=== PATIENT | female | born 1940 | race Caucasian/White ===

== ENCOUNTER 2017-02-15 16:47 | Inpatient (IN) | payer MEDICARE, OTHER ==
[2017-02-15] MEDS ORDERED: SODIUM CHLORIDE 0.9% 500 ML ONE (17:35)
[2017-02-15 18:08] LABS: ABSOLUTE NEUTROPHIL COUNT 5.3 K/mm3 (1.8-7.7); BASO # 0.1 K/mm3 (0.0-0.2); BASO % 0.7 % (0.2-1.0); EOS # 0.2 (0.0-0.5); EOS % 2.2 % (0.9-2.9); HEMATOCRIT 38.8 % (37.0-47.0); HEMOGLOBIN 12.5 gm/l (12.0-16.0); IMM NEUT% 0.3 % (0-1); LYMPH # 3.1 (1.0-4.8); LYMPH % 32.9 % (15-45); MEAN CELL VOLUME 96.3 fl (81.0-99.0); MEAN CORPUSCULAR HGB CONC 32.2 g/dl (33.0-37.0); MEAN PLATELET VOLUME 10.6 fl (7.4-10.4); MONO # 0.7 (0.0-0.8); MONO % 7.4 % (4-12); NEUT % 56.5 % (43-75); PLATELET COUNT 204 K/mm3 (130-400); RED CELL DISTRIBUTION WIDTH 13.4 % (11.5-14.5)
[2017-02-15 18:13] LABS: ALB/GLOB RATIO 1.1 (>1.0); ALBUMIN 3.8 gm/dL (3.5-5.7); CALCIUM 11.3 mg/dL (8.6-10.3)
[2017-02-15 18:17] LABS: INR 1.6; PARTIAL THROMBOPLASTIN TIME 30.4 SECONDS (24.5-33.0); PROTHROMBIN TIME 17.2 SECONDS (9.3-11.4)
--- NOTE | 2017-02-15 18:19 | CT ---
HEAD W/O CON: 02/15/2017 5:14 PM CLINICAL HISTORY: Left-sided weakness. CVA symptoms.. COMPARISON: 09/23/2012 TECHNIQUE: Contiguous axial 5 mm images from skull base to the vertex were obtained without IV contrast. Sagittal and coronal reformations with bone algorithm images were also obtained at this time. CT DI:: 51.7 DLP: 990.6 FINDINGS: Infarct: None Extra axial spaces: Normal in size and morphology for the patient's age. Hemorrhage: None. Ventricular system: Normal in size and morphology for the patient's age. Basal cisterns: Normal. Cerebral parenchyma: Encephalomalacia from prior left parietal infarction is again noted. Moderate atrophy. Compensatory dilation of the cerebral ventricles.. Midline shift: None. Cerebellum: Normal. Brainstem: Normal. OTHER: Calvarium: Normal. Vascular system: Normal. Visualized Paranasal sinuses and Mastoid air cells: Opacification of a right ethmoid air cell. The remainder are well aerated. There is some soft tissue gas noted within the right temporalis region of unknown clinical significance. There is been significant improvement in the pterygoid gas is noted on prior study though a few flecks are still present.. Visualized Orbits and regional soft tissues: Normal. IMPRESSION: Atrophy and findings from prior infarction. No acute intracranial process. Soft tissue gas has improved though still present within the temporalis and pterygoid musculature on the right. Findings were called to Dr. Brandon at approximately 1813 hours on 02/14/2017.
[2017-02-15 18:40] LABS: PH,URINE 6.5 (5.0-8.0); URINE APPEARANCE CLEAR; URINE BILIRUBIN NEGATIVE (NEGATIVE); URINE BLOOD TRACE (NEGATIVE); URINE COLOR YELLOW; URINE GLUCOSE (UA) TRACE (NEGATIVE); URINE LEUKOCYTE ESTERASE NEGATIVE (NEGATIVE); URINE NITRITE NEGATIVE (NEGATIVE); URINE PROTEIN 1+ (NEGATIVE); URINE UROBILINOGEN NORMAL (0-1 mg/dl)
[2017-02-15 18:51] LABS: URINE BACTERIA FEW; URINE EPITHELIAL CELLS 0-1 /hpf; URINE RBC 0-1 /hpf; URINE WBC 0-1 /hpf
--- NOTE | 2017-02-15 19:57 | RAD ---
02/15/2017 7:53 PM CHEST - 2 VIEWS History: Left-sided weakness. Comparison: 06/05/2016 Findings: Two views of the chest are obtained. The lungs again demonstrate some minimal blunting of the costophrenic angle bilaterally. This is improved on the left in comparison to prior study. Lungs are otherwise clear. Surgical clips are noted within the axilla bilaterally. The cardiomediastinal silhouette is unremarkable.. The osseous structures demonstrate degenerative changes of the shoulders bilaterally.. IMPRESSION: Tiny bilateral effusions, improved on the left in comparison to prior study. Lungs are otherwise clear. Follow-up as clinically warranted.
[2017-02-15] MEDS ORDERED: SODIUM CHLORIDE 0.9% 100 ML IV PRN (22:03)
[2017-02-15] MEDS ORDERED: BISACODYL 5 MG TABLET.EC PO PRN (22:03)
[2017-02-15] MEDS ORDERED: MAGNESIUM HYDROXIDE 30 ML UDCUP PO PRN (22:03)
[2017-02-15] MEDS ORDERED: BLISTEX LIPSTICK 1 EACH TP PRN (22:03)
[2017-02-15] MEDS ORDERED: MENTHOL/CETYLPYRD 1 EACH LOZENGE PO PRN (22:03)
[2017-02-15] MEDS ORDERED: BISACODYL 10 MG SUP PR PRN (22:03)
[2017-02-15] MEDS ORDERED: D5 1/2NS with 20 mEq KCL 1,000 ML IV SCH (22:15)
[2017-02-15] MEDS ORDERED: ZINC OXIDE OINT 60 APPLIC/60 G TUBE TP PRN (22:28)
[2017-02-15] MEDS ORDERED: ASPIRIN (UNCOATED) 325 MG TABLET PO ONE (22:34)
[2017-02-15] MEDS ORDERED: GABAPENTIN 300 MG CAPSULE ONE (22:42)
[2017-02-15] MEDS ORDERED: PUMP TUBING ONE (22:42)
[2017-02-15] MEDS ORDERED: WARFARIN SODIUM 2.5 MG TABLET ONE (22:42)
[2017-02-15] MEDS ORDERED: WARFARIN SODIUM 5 MG TABLET ONE (22:43)
[2017-02-15] MEDS ORDERED: INSULIN GLARGINE (DOSE) 100 UNITS/ML UNIT ONE (22:46)
[2017-02-15] MEDS: GABAPENTIN 300 MG CAPSULE PO SCH (22:53)
[2017-02-15 23:32] LABS: MAGNESIUM 2.2 mg/dL (1.9-2.7)
[2017-02-16 01:12] VITALS: BMI 34.4
[2017-02-16 06:00] LABS: BASO # 0.1 K/mm3 (0.0-0.2); BASO % 0.6 % (0.2-1.0); EOS # 0.3 (0.0-0.5); HEMATOCRIT 29.9 % (37.0-47.0); HEMOGLOBIN 9.5 gm/l (12.0-16.0); IMM NEUT% 0.1 % (0-1); LYMPH # 2.8 (1.0-4.8); LYMPH % 30.7 % (15-45); MEAN CELL VOLUME 95.2 fl (81.0-99.0); MEAN CORPUSCULAR HEMOGLOBIN 30.3 pg (27.0-31.0); MEAN CORPUSCULAR HGB CONC 31.8 g/dl (33.0-37.0); MEAN PLATELET VOLUME 10.6 fl (7.4-10.4); MONO # 0.9 (0.0-0.8); MONO % 9.5 % (4-12); NEUT % 56.1 % (43-75); PLATELET COUNT 183 K/mm3 (130-400); RED CELL DISTRIBUTION WIDTH 13.8 % (11.5-14.5)
[2017-02-16 06:16] LABS: INR 1.71; PROTHROMBIN TIME 18.5 SECONDS (9.3-11.4)
[2017-02-16 06:23] LABS: ALBUMIN 3.1 gm/dL (3.5-5.7); CALCIUM 10.5 mg/dL (8.6-10.3)
[2017-02-16] MEDS ORDERED: ZINC OXIDE OINTMENT 30 APPLIC/30 G TUBE TP PRN (07:50)
--- NOTE | 2017-02-16 08:14 | HP ---
Viviane Garcia [id number] DATE OF ADMISSION: 02/15/2017 CHIEF COMPLAINT: Left sided weakness. HISTORY OF PRESENT ILLNESS: The patient is a 76-year-old female with a prior history of atrial fibrillation on Coumadin. The patient had been at baseline state of health. This morning she went to go take a nap at around 2:00 p.m., but at 4:00 p.m. when she got up she was noted to have a hard time listing to the left side and having weakness on the left side. Her ultimately got her up to the wheelchair with help from her son and was brought here. In the emergency room CT did not show any acute abnormalities and she is noted to have some degree of worsening of her chronic renal failure, but no marked lab abnormalities. PAST MEDICAL HISTORY: Remarkable for antiphospholipid syndrome with prior history of deep venous thrombosis, pulmonary embolism, and stroke. She is on warfarin and has had a camilla filter, history of coronary artery disease with multiple vessels affected. She has got chronic diastolic congestive heart failure with echo May 2016 showing ejection fraction of 55% to 60%, moderate aortic stenosis, mild to moderate mitral regurgitation, and chronic atrial fibrillation. She has chronic obstructive pulmonary disease and is on 3 liters of oxygen all the time. 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 PAST SURGICAL HISTORY: Remarkable for a left mastectomy in 1989, right mastectomy in 1998, total abdominal hysterectomy, bilateral salpingo-oophorectomy 1970, coronary angiogram 2010 with a subsequent retroperitoneal hematoma reported, camilla filter placed 2010, cystoscopy, lithotripsy, and urinary stenting in 2011, skin cancer in the left ear. She has had cataracts removed. CODE STATUS: She wishes for do not resuscitate status and reports that she previously experienced some degree of resuscitation and did not like what happened to her chest. ALLERGIES: LISTED PENICILLIN, ASPIRIN, AND PEACHES. CURRENT MEDICATIONS: Home medication regimen taken from the list taken by the emergency room shows: 1. Aspirin 325 mg by mouth three times daily. 2. Lasix 40 mg daily. 3. Gabapentin 300 mg by mouth twice daily. 4. NovoLog sliding scale. 5. Lantus 28 units subcutaneous every evening. 6. Metoprolol 12.5 mg by mouth daily. 7. Multivitamin 1 by mouth daily. 8. Pregabalin 25 mg in the afternoon. 9. Sertraline 15 mg by mouth every morning. 10. reports Coumadin was recently increased to 7.5 mg Monday, Monday, Monday, and 5 mg by mouth Monday, Monday, , Monday. SOCIAL HISTORY: She lives in [place] with her who is caregiver since 2010. They have been since 1972. 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 She has a history of smoking, but quit in the 's. No alcohol or drug use. She has four kids herself and her has four kids. No particular anabaptist affiliation. They have two dogs. FAMILY HISTORY: Her previous records show that mom of influenza. Father of hypertension, myocardial infarction. Brother with pancreatic cancer and sister with diabetes. REVIEW OF SYSTEMS: Eyes. She has had cataracts removed otherwise, they are doing okay. Ears are okay. Nose is okay. Mouth: Her notes her voice is slightly husker and slightly quieter than it would be normally. She has dentures. Neck has been okay. Breathing is okay. She does use oxygen. Heart is okay. No dysrhythmia. No chest pain noted. Stomach has been okay. No vomiting. No diarrhea. No urinary complaints except for frequent urination every two hours which is ongoing. Nursing had noted some erythema on examination as well. Blood sugars have generally been in the 90's. She has not had any low blood sugars recently. She notes occasional pain and swelling in her ankles. She normally can get to standing with assistance for pivot type transfers, but was unable to be done with one person today. She has had no particular falls. She has had some bruising on her arms noted by her . PHYSICAL EXAMINATION: GENERAL: Nontoxic frail appearing female. VITAL SIGNS: Temperature 98.1, blood pressure 131/53, pulse 57, respirations 22, 95% saturation on room air. HEENT: Head is normocephalic, atraumatic. Eyes are unremarkable. Ears are normal. Nose is normal. Mouth edentulous with dentures. NECK: Supple without masses. No rigidity. Voice is mildly quieter and not quite as strong as it might have been. LUNGS: Clear to auscultation bilaterally. HEART: Mostly regular, 3/6 systolic murmur noted throughout the pericardium and the right sternal border. ABDOMEN: Soft, nontender, nondistended. Healed lower abdominal incision scar. Soft bruit is noted in the upper abdomen, possibly transmitted heart murmur. GENITOURINARY: Deferred. EXTREMITIES: Legs with old hyperpigmentation on the left cheng from remote history of injury. Feet without ulcerations. Onychomycosis noted. Some general odor suggestive of bathing. NEURO: She is oriented x2, but is unable to guess the date. Cranial nerves are generally intact. Left arm with poor finger to nose and slight closure of the left hand and general weakness noted. Gait is not tested. Leg lifting difficult with both legs. LABORATORY: White count 9.5, hemoglobin 12.5, platelets 204, INR 1.6, sodium 144, potassium 3.6, chloride 100, CO2 34, BUN 54, creatinine 3.7, glucose 137, calcium is 11.3, bilirubin 0.5, AST 16, ALT 14, alk phos 46, troponin 0.05, albumin 3.8, globulin 3.6, urinalysis 1+ protein. DIAGNOSTICS: Chest x-ray tiny bilateral pleural effusions. Brain CT atrophy, previous infarction in the left parietal area, no acute changes. EKG atrial fibrillation 72 beats per minute, left bundle branch block, QRS 158, QTC 441. ASSESSMENT AND PLAN: 1. New left sided weakness. Consider internal capsule versus a cerebellar stroke. Would consider for permissive hypertension although, do not wish to stop her beta asael at this time. We plan to elevate head of bed. Cautious with swallow. Aspirin and will continue anticoagulation although, she is not therapeutic on this. 2. Atrial fibrillation. INR not to goal. We will dose tonight and monitor. 3. Acute on chronic kidney disease approaching stage V. We will check phosphorus and magnesium. 4. Diabetes mellitus type 2. IV fluids, insulin, sliding scale, capillary blood glucoses. 5. History of coronary artery disease. Her troponin was normal, recheck in the morning. 6. Remote history of breast cancer not otherwise addressed. 7. Do not resuscitate status. Reviewed with patient and her today. 8. Chronic obstructive pulmonary disease. Sats are good. Consider oxygen replacement, but try to lower use as her bicarbonate is slightly elevated suggesting some degree of CO2 retention. 9. Elevated calcium attributed to renal status. Patient had her Calcitriol held by her biosecurity officer recently. 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 JOB: [id number] CC: Dr. Candy Jones
[2017-02-16] MEDS ORDERED: METOPROLOL SUCCINATE 25 MG TAB.ER.24H PO SCH (09:00)
[2017-02-16] MEDS: SERTRALINE HCL 50 MG TABLET PO SCH (09:32)
[2017-02-16] MEDS: DOCUSATE SODIUM 100 MG CAPSULE PO SCH ×2 (09:32→20:25)
[2017-02-16] MEDS: CLOTRIMAZOLE 1% 15 APPLIC/15 G CREAM TP SCH ×2 (09:32→20:25)
[2017-02-16] MEDS: FUROSEMIDE 40 MG TABLET PO SCH (09:32)
[2017-02-16] MEDS: MULTIVITAMINS 1 TAB TABLET PO SCH (09:32)
[2017-02-16] MEDS: ISOSORBIDE MONONITRATE 30 MG TAB.SR PO SCH (09:32)
--- NOTE | 2017-02-16 12:45 | PDOC43 ---
- Subjective Chief Complaint: L sided weakness Patient reports sleeping fairly well. reports L arm moving a little worse than earlier this am. Did have some shoulder discomfort earlier, but not now. Pt had also had some foot discomfort, attributed to squeezing, not sure if it was SCDs or nursing staff. Would like some coffee. complains that pt likes to have multiple shots in coffee, concerned that it might be too strong. - Objective Vital Signs Temperature 97.0 F 02/16/17 11:00 Pulse Rate 64 02/16/17 11:00 Respiratory Rate 19 02/16/17 11:00 Blood Pressure 145/69 02/16/17 11:00 O2 Saturation by Pulse Oximetry 97 02/16/17 11:00 Oxygen Delivery Method Room Air Oxygen Flow Rate 0 Vital Signs Last 12 Hours Temp Pulse Resp BP Pulse Ox 02/16/17 11:00 97.0 F 64 19 145/69 97 02/16/17 07:00 97.0 F 56 18 124/49 96 02/16/17 03:25 97.6 F 55 18 128/62 96 02/16/17 03:24 18 Intake and Output 02/14/17 02/15/17 02/16/17 23:59 23:59 23:59 Intake Total 1584 Balance 1584 General: Alert, Cooperative, No Acute Distress HEENT: Atraumatic Lungs: Clear to Auscultation Bilaterally, Normal Air Movement Cardiovascular: Irregular, Murmur Abdomen: Soft, Normal Bowel Sounds, Non-Distended, No Tenderness, No Rebounding , No Involuntary Guarding Extremities: Other (SCDs, hose on lower extrem bilat. L arm with fairly severe ataxia, dysmetria, weakness.) Skin: Normal Color Neurological: Normal Speech (sl stronger today.), Other (L arm with marked ataxia.) Psych/Mental Status: Other (answers appropriately.) Laboratory 02/16/17 05:30 02/16/17 05:30 02/16/17 02/15/17 05:30 22:18 RBC 3.14 L MCHC 31.8 L PT 18.5 H BUN 50 H Estimated GFR 12 L POC Capillary Glucose 118 H Calcium 10.5 H Troponin I 0.10 H Total Protein 6.2 L Albumin 3.1 L Laboratory Tests 06/05/16 06/05/16 06/06/16 10:20 10:30 05:30 INR 1.52 1.68 Calcium Phosphorus Magnesium Troponin I TSH 5.80 H 02/15/17 02/16/17 17:35 05:30 INR Calcium 11.3 H 10.5 H Phosphorus 4.2 Magnesium 2.2 Troponin I 0.05 0.10 H TSH Current Medications: Current meds reviewed in EMR. Active Medications Acetaminophen (Tylenol) 650 mg PO Q6H PRN PRN Reason: Pain or Temperature > 100.5 F Benzocaine/Menthol (Cepacol) 1 each PO PRN PRN PRN Reason: Sore Throat Bisacodyl (Dulcolax) 10 mg [place] DAILY PRN PRN Reason: Constipation Bisacodyl (Dulcolax) 5 mg PO DAILY PRN PRN Reason: Constipation Clotrimazole (Lotrimin) 1 applic TP BID COUNTS INCLUDE 234 BEDS AT THE [facility] Last Admin: 02/16/17 09:32 Dose: 1 applic Docusate Sodium (Colace) 100 mg PO BID COUNTS INCLUDE 234 BEDS AT THE [facility] Last Admin: 02/16/17 09:32 Dose: 100 mg Furosemide (Lasix) 40 mg PO DAILY COUNTS INCLUDE 234 BEDS AT THE [facility] Last Admin: 02/16/17 09:32 Dose: 40 mg Furosemide (Lasix) 20 mg PO 1400 COUNTS INCLUDE 234 BEDS AT THE [facility] Gabapentin (Neurontin) 300 mg PO BEDTIME COUNTS INCLUDE 234 BEDS AT THE [facility] Last Admin: 02/15/17 22:53 Dose: 300 mg Sodium Chloride (Sodium Chloride 0.9%) 100 mls @ 25 mls/hr IV PRN PRN PRN Reason: Flush Insulin Aspart (Novolog (Dose)) 0 units SUB-Q WM/BEDTIME PRN; Protocol PRN Reason: Blood Sugar > Insulin Glargine (Lantus (Dose)) 20 units SUB-Q QPM COUNTS INCLUDE 234 BEDS AT THE [facility] Last Admin: 02/15/17 22:52 Dose: 20 units Isosorbide Mononitrate (Imdur) 30 mg PO DAILY COUNTS INCLUDE 234 BEDS AT THE [facility] Last Admin: 02/16/17 09:32 Dose: 30 mg Magnesium Hydroxide (Milk Of Magnesia) 30 ml PO DAILY PRN PRN Reason: Constipation Miscellaneous (Calcium Acetate [Eliphos]) 0 mg PO TIDWM COUNTS INCLUDE 234 BEDS AT THE [facility] Multi-Ingredient Ointment (Zinc Oxide Ointment) 1 applic TP BID PRN PRN Reason: Rash Multivitamins (One-A-Day) 1 tab PO DAILY COUNTS INCLUDE 234 BEDS AT THE [facility] Last Admin: 02/16/17 09:32 Dose: 1 tab Petrolatum/Paraffin/Mineral Oil (Blistex) 1 each TP PRN PRN PRN Reason: Dry and/or chapped lips Pregabalin (Lyrica) 25 mg PO 1400 COUNTS INCLUDE 234 BEDS AT THE [facility] Stop: 02/23/17 13:59 Sertraline HCl (Zoloft) 50 mg PO QAM COUNTS INCLUDE 234 BEDS AT THE [facility] Last Admin: 02/16/17 09:32 Dose: 50 mg Sodium Chloride (Normal Saline 10ml Flush) 10 - 50 ml IV PRN PRN PRN Reason: IV Flush Last Admin: 02/15/17 22:53 Dose: 10 ml Sodium Chloride (Normal Saline 10ml Flush) 10 ml IV Q8HR COUNTS INCLUDE 234 BEDS AT THE [facility] Last Admin: 02/16/17 09:33 Dose: Not Given Warfarin Sodium (Coumadin) 5 mg PO SUTUTHSA@1600 KADEEM Warfarin Sodium (Coumadin) 7.5 mg PO MOWEFR@1600 KADEEM - Problems: Assessment/Plan (1) Stroke Qualifiers: CVA mechanism: stenosis Laterality of affected vessel: unspecified Qualifier Code: () Status: AcuteAssessment/Plan: with marked L arm weakness, ataxia, as well as difficulty with stand/transfer. Appreciate PT/OT care. Left leg may have been her stronger leg, but now both quite weak Anticipate needing to go to rehab. Continue with anticoagulation, permissive HTN. (2) DM II (diabetes mellitus, type II), controlled Status: ChronicAssessment/Plan: Glucose 118-213. (3) Atrial fibrillation Qualifiers: Atrial fibrillation type: chronic Qualifier Code: (I48.2) Chronic atrial fibrillation Status: ChronicAssessment/Plan: on warfarin, INR not quite to goal, appreciate pharmacy care. HR controlled. (4) CKD (chronic kidney disease) stage 4, GFR 15-29 ml/min Status: ChronicAssessment/Plan: minimal improvement in creatinine 3.7->3.6 with gentle hydration. (5) COPD (chronic obstructive pulmonary disease) Status: ChronicAssessment/Plan: continue inhalers. (6) Anemia Qualifiers: Anemia type: unspecified type Qualifier Code: (D64.9) Anemia, unspecified Status: AcuteAssessment/Plan: Etiology not clear, but pt with chronic kidney disease, on warfarin. Hb with signifcant drop 12.5->9.5. Check hemoccult. Recheck in am. Borderline macrocytic. Checking B12, folate, iron studies, reticulocyte count. VTE Prophylaxis: on warfarin per pharmacy. INR sl low at 1.71 02/16. Disposition: Anticipate need to go to poststroke rehab/SNF
[2017-02-16] MEDS: INSULIN ASPART (DOSE) 100 UNITS/1 ML SUB-Q PRN (13:14)
[2017-02-16] MEDS: PREGABALIN 25 MG CAP PO SCH (15:33)
[2017-02-16] MEDS: CALCIUM ACETATE PO SCH ×2 (15:33→18:22)
[2017-02-16] MEDS: FUROSEMIDE 20 MG TABLET PO SCH (15:33)
[2017-02-16] MEDS ORDERED: WARFARIN PER PHARMACY 1 EACH DOSE PO SCH (16:00)
[2017-02-16] MEDS ORDERED: WARFARIN SODIUM 2.5 MG TABLET PO SCH (16:00)
[2017-02-16] MEDS ORDERED: WARFARIN SODIUM 7.5 MG TABLET PO ONE (16:00)
[2017-02-16] MEDS ORDERED: INSULIN GLARGINE (DOSE) 100 UNITS/ML UNIT SUB-Q SCH ×2 (20:00)
[2017-02-16] MEDS: GABAPENTIN 300 MG CAPSULE PO SCH (20:24)
[2017-02-16] MEDS: INSULIN GLARGINE (DOSE) 100 UNITS/ML UNIT SUB-Q SCH (20:24)
[2017-02-17 00:49] LABS: IRON 47 ug/dL (50-212); TOTAL IRON BINDING CAPACITY 202 ug/dL (261-478); TRANSFERRIN 144 mg/dL (203-362)
[2017-02-17 02:15] LABS: FOLIC ACID > 23.6 ng/mL (>5.9)
[2017-02-17 05:57] LABS: BASO # 0.1 K/mm3 (0.0-0.2); BASO % 0.5 % (0.2-1.0); EOS # 0.4 (0.0-0.5); EOS % 3.2 % (0.9-2.9); HEMATOCRIT 32.8 % (37.0-47.0); HEMOGLOBIN 10.7 gm/l (12.0-16.0); IMM NEUT% 0.2 % (0-1); LYMPH # 2.7 (1.0-4.8); LYMPH % 24.9 % (15-45); MEAN CELL VOLUME 94.8 fl (81.0-99.0); MEAN CORPUSCULAR HEMOGLOBIN 30.9 pg (27.0-31.0); MEAN CORPUSCULAR HGB CONC 32.6 g/dl (33.0-37.0); MEAN PLATELET VOLUME 10.4 fl (7.4-10.4); MONO # 0.9 (0.0-0.8); MONO % 7.9 % (4-12); NEUT % 63.3 % (43-75); PLATELET COUNT 207 K/mm3 (130-400); RED CELL DISTRIBUTION WIDTH 13.6 % (11.5-14.5)
[2017-02-17 06:08] LABS: INR 2.22; PROTHROMBIN TIME 24.3 SECONDS (9.3-11.4)
[2017-02-17 07:06] LABS: ALBUMIN 3.3 gm/dL (3.5-5.7); CALCIUM 10.5 mg/dL (8.6-10.3)
[2017-02-17] MEDS: CALCIUM ACETATE PO SCH ×2 (08:19→13:01)
[2017-02-17] MEDS: ISOSORBIDE MONONITRATE 30 MG TAB.SR PO SCH (08:20)
[2017-02-17] MEDS: SERTRALINE HCL 50 MG TABLET PO SCH (08:20)
[2017-02-17] MEDS: CLOTRIMAZOLE 1% 15 APPLIC/15 G CREAM TP SCH ×2 (08:20→21:15)
[2017-02-17] MEDS: FUROSEMIDE 40 MG TABLET PO SCH (08:20)
[2017-02-17] MEDS: DOCUSATE SODIUM 100 MG CAPSULE PO SCH ×2 (08:20→21:15)
[2017-02-17] MEDS: MULTIVITAMINS 1 TAB TABLET PO SCH (08:20)
[2017-02-17] MEDS: PREGABALIN 25 MG CAP PO SCH (13:01)
[2017-02-17] MEDS: FUROSEMIDE 20 MG TABLET PO SCH (13:01)
[2017-02-17] MEDS: INSULIN ASPART (DOSE) 100 UNITS/1 ML SUB-Q PRN ×3 (13:01→21:29)
[2017-02-17] MEDS ORDERED: WARFARIN SODIUM 2.5 MG TABLET PO SCH (16:00)
[2017-02-17] MEDS ORDERED: WARFARIN SODIUM 7.5 MG TABLET PO ONE (16:00)
--- NOTE | 2017-02-17 16:10 | PDOC43 ---
- Subjective Chief Complaint: Left sided weakness, neglect, confusion Subjective: Reports Tolerating Diet Well, Reports Bowel Movement, Denies Abdominal Pain, Denies Nausea, Denies Vomiting, Denies Fever (somnolent) - Objective Vital Signs Temperature 97.8 F 02/17/17 15:49 Pulse Rate 74 02/17/17 15:49 Respiratory Rate 16 02/17/17 15:49 Blood Pressure 136/75 02/17/17 15:49 O2 Saturation by Pulse Oximetry 98 02/17/17 15:49 Oxygen Delivery Method Room Air Oxygen Flow Rate 0 Intake and Output 02/15/17 02/16/17 02/17/17 23:59 23:59 23:59 Intake Total 1604 300 Output Total 811 Balance 1604 -511 General: Other (somnolent), No Acute Distress HEENT: Atraumatic, PERRLA, EOMI, Mucous membr. moist/pink Lungs: Clear to Auscultation Bilaterally, Normal Air Movement Cardiovascular: Irregular Abdomen: Soft, Normal Bowel Sounds, Non-Distended, No Tenderness Extremities: Normal Pulses, No Edema, No Tenderness Skin: Normal Color, Dry, Intact Neurological: Other (diminshed strength lue/rue, neglect of the left limbs) Laboratory 02/17/17 05:25 02/17/17 05:25 02/17/17 02/17/17 02/17/17 11:51 07:16 05:25 RBC 3.46 L MCHC 32.6 L PT 24.3 H BUN 47 H Estimated GFR 12 L POC Capillary Glucose 250 H 167 H Calcium 10.5 H Iron TIBC Transferrin Ferritin Albumin 3.3 L Vitamin B12 02/16/17 02/16/17 02/16/17 20:23 17:49 05:30 RBC MCHC PT BUN Estimated GFR POC Capillary Glucose 214 H 176 H Calcium Iron 47 L TIBC 202 L Transferrin 144 L Ferritin 370.0 H Albumin Vitamin B12 978 H Current Medications: Current meds reviewed in EMR. - Problems: Assessment/Plan (1) Delirium Status: AcuteAssessment/Plan: ddx includes pre-existent dementia ( denies), CVA sequela, hypercalcemia (2) Stroke Qualifiers: CVA mechanism: occlusion Laterality of affected vessel: unspecified Status: AcuteAssessment/Plan: Left sided deficit. AntiPhospholipid Ab Syndrome with prior clotting events as well as AFIB and HLD/DM. Completed speech/swallow evaluation, PT/OT evaluation. Stroke education provided. Will check FLP and discharge back on home Lovastatin. Intolerant to ASA due to gastritis by report. Recommend PCP evaluate whether risk vs benefit of antiplatelet therapy in addition to Warfarin. Warfarin for APL and afib Discharge to acute care rehab facility (3) Hypercalcemia Status: AcuteAssessment/Plan: Not present on prior labs available for review. Hold Calcium acetate. Order PTH and vit D levels. If these are unremarkable must consider other underlying process such as malignancy/myeloma. She does have a remote history of primary best cancer in the left breast and then the right about 20years ago per (4) DM II (diabetes mellitus, type II), controlled Status: ChronicAssessment/Plan: Home management, SSI prn (5) CKD (chronic kidney disease) stage 4, GFR 15-29 ml/min Status: ChronicAssessment/Plan: Prior baselines appear to be closer to 3. No evidence of hypovolemia. Stable on this admit at 3.6-3.8 (6) Anti-phospholipid syndrome Status: ChronicAssessment/Plan: systemically anticoagulated hx of IVC filter (7) Atrial fibrillation, chronic Status: ChronicAssessment/Plan: Rate controlled, anticoagulant (8) COPD (chronic obstructive pulmonary disease) Status: ChronicAssessment/Plan: chronic without current acute exacerbation. (9) Anemia associated with chronic renal failure Status: ChronicAssessment/Plan: Stable. VTE Prophylaxis: Warfarin Disposition: Anticipate need to go to poststroke rehab/SNF Additional Comments: DNR
[2017-02-17] MEDS: GABAPENTIN 300 MG CAPSULE PO SCH (21:14)
[2017-02-17] MEDS: ACETAMINOPHEN 325 MG TABLET PO PRN (21:20)
[2017-02-17] MEDS: INSULIN GLARGINE (DOSE) 100 UNITS/ML UNIT SUB-Q SCH (21:25)
[2017-02-17] MEDS ORDERED: DENOSUMAB 60 MG/ML SYRINGE SUB-Q ONE (22:41)
[2017-02-18] MEDS: ACETAMINOPHEN 325 MG TABLET PO PRN ×2 (04:59→16:09)
[2017-02-18 06:27] LABS: ABSOLUTE NEUTROPHIL COUNT 6.3 K/mm3 (1.8-7.7); BASO # 0.1 K/mm3 (0.0-0.2); BASO % 0.6 % (0.2-1.0); EOS # 0.4 (0.0-0.5); EOS % 3.5 % (0.9-2.9); HEMATOCRIT 33.5 % (37.0-47.0); HEMOGLOBIN 10.9 gm/l (12.0-16.0); IMM NEUT% 0.3 % (0-1); LYMPH # 3.7 (1.0-4.8); LYMPH % 31.6 % (15-45); MEAN CELL VOLUME 94.1 fl (81.0-99.0); MEAN CORPUSCULAR HEMOGLOBIN 30.6 pg (27.0-31.0); MEAN CORPUSCULAR HGB CONC 32.5 g/dl (33.0-37.0); MEAN PLATELET VOLUME 10.9 fl (7.4-10.4); MONO # 1.2 (0.0-0.8); MONO % 9.9 % (4-12); NEUT % 54.1 % (43-75); PLATELET COUNT 223 K/mm3 (130-400); RED CELL DISTRIBUTION WIDTH 13.5 % (11.5-14.5)
[2017-02-18] MEDS: DOCUSATE SODIUM 100 MG CAPSULE PO SCH ×3 (07:08→21:13)
[2017-02-18] MEDS: FUROSEMIDE 40 MG TABLET PO SCH ×2 (07:09→08:35)
[2017-02-18] MEDS: CLOTRIMAZOLE 1% 15 APPLIC/15 G CREAM TP SCH ×3 (07:09→21:13)
[2017-02-18] MEDS: ISOSORBIDE MONONITRATE 30 MG TAB.SR PO SCH ×2 (07:09→08:35)
[2017-02-18] MEDS: SERTRALINE HCL 50 MG TABLET PO SCH ×2 (07:10→09:21)
[2017-02-18 07:11] LABS: INR 2.81; PROTHROMBIN TIME 31.2 SECONDS (9.3-11.4)
[2017-02-18] MEDS ORDERED: DENOSUMAB 60 MG/ML SYRINGE SUB-Q ONE (08:00)
[2017-02-18 08:39] LABS: ALB/GLOB RATIO 1.1 (>1.0); ALBUMIN 3.3 gm/dL (3.5-5.7); CALCIUM 10.3 mg/dL (8.6-10.3); CHOLESTEROL RISK RATIO 3.6 (3.7-5.6)
[2017-02-18] MEDS ORDERED: VANCOMYCIN HCL 0.75 G in SODIUM CHLORIDE 0.9% 250 ML IV SCH (09:00)
[2017-02-18] MEDS ORDERED: CALCITONIN SALMON SYNTHETIC SUB-Q SCH (09:00)
[2017-02-18] MEDS ORDERED: SODIUM CHLORIDE 0.9% 1,000 ML IV SCH (10:01)
--- NOTE | 2017-02-18 10:10 | PDOC43 ---
- Subjective Chief Complaint: Left sided weakness, neglect, confusion Subjective: Reports Other (confused, somnolent, discoordination of left arm, complains of pain in her tailbone but denies elsewhere), Denies Nausea, Denies Vomiting, Denies Fever - Objective Vital Signs Temperature 97.6 F 02/18/17 07:15 Pulse Rate 66 02/18/17 07:15 Respiratory Rate 16 02/18/17 08:00 Blood Pressure 114/76 02/18/17 07:15 O2 Saturation by Pulse Oximetry 98 02/18/17 07:15 Oxygen Delivery Method Room Air Oxygen Flow Rate 0 Intake and Output 02/16/17 02/17/17 02/18/17 23:59 23:59 23:59 Intake Total 1604 600 700 Output Total 815 800 Balance 1604 215 100 General: Other (somnolent, able to identify but not location/situation/ recent events) HEENT: Atraumatic, PERRLA, EOMI, Mucous membr. moist/pink Lungs: Clear to Auscultation Bilaterally, Normal Air Movement Cardiovascular: Regular Rate and Rhythm Abdomen: Soft, Normal Bowel Sounds, No Tenderness, No Non-Distended Extremities: Edema (trace, non pitting, compression hose in place), Tenderness ( BLE), Normal Pulses, No Cyanosis Skin: Warm, Dry, Intact Neurological: Normal Speech (normal word formation but slowed speech with word finding difficulty), Cranial Nerves 3-12 Intact (difficulty cooperating, but not obvious deficit), Other (left upper extremity with fairly intact strength but poor coordination and proprioception generalized weakness difficulty attending to instruction and exam) Psych/Mental Status: Flat Affect bilateral breast absent, no palpable masses of the chest wall, no cervical/ supraclavicular/axillary or inguinal lymphadenopathy Laboratory 02/18/17 05:30 02/18/17 05:30 02/18/17 02/18/17 02/17/17 07:06 05:30 21:24 RBC 3.56 L MCHC 32.5 L PT 31.2 H BUN 51 H Estimated GFR 12 L POC Capillary Glucose 124 H 263 H Albumin 3.3 L Cholesterol 120 L Cholesterol Risk Factr 3.6 L HDL Cholesterol 33 L Parathyroid Hormone 02/17/17 02/17/17 02/17/17 16:48 11:51 05:25 RBC MCHC PT BUN Estimated GFR POC Capillary Glucose 273 H 250 H Albumin Cholesterol Cholesterol Risk Factr HDL Cholesterol Parathyroid Hormone 11.9 L Current Medications: Current meds reviewed in EMR. - Problems: Assessment/Plan (1) Hypercalcemia Status: AcuteAssessment/Plan: Calcitonin dosing, gentle IVF hydration, redraw Ca in am. Not present on prior labs available for review. Hold Calcium acetate and any other VitD or Ca+ containing medications. PTH is low which make this more likely to be a paraneoplastic finding or plasma cell disease but workup is underway. I am concerned of underlying process such as malignancy/myeloma. She does have a remote history of primary best cancer in the left breast and then the right about 20years ago per . Of note, on history yesterday and today, does seem to have some mild cognitive/memory deficits as well. (2) Delirium Status: AcuteAssessment/Plan: ddx includes pre-existent dementia ( denies), CVA sequelae but CT head on admit without acute evidence of CVA, symptomatic hypercalcemia I am going to treat the hypercalcemia and reassess in 24hrs (3) Stroke Qualifiers: CVA mechanism: occlusion Laterality of affected vessel: unspecified Status: AcuteAssessment/Plan: Left sided deficit observed on admit but PT is noting migratory deficits and variable symptoms, more concerning now for metabolic encephalopathy. May need an MRI brain prior to discharge in order to further clarify. AntiPhospholipid Ab Syndrome with prior clotting events as well as AFIB and HLD /DM. Completed speech/swallow evaluation, PT/OT evaluation and treatment ongoing. Stroke education provided. Will check FLP and discharge back on home Lovastatin. Intolerant to ASA due to gastritis by report. Recommend PCP evaluate whether risk vs benefit of antiplatelet therapy in addition to Warfarin. Warfarin for APL and afib Discharge to acute care rehab facility once clinical course is more clear (4) DM II (diabetes mellitus, type II), controlled Status: ChronicAssessment/Plan: Home management, SSI prn (5) CKD (chronic kidney disease) stage 4, GFR 15-29 ml/min Status: ChronicAssessment/Plan: Prior baselines appear to be closer to 3. No evidence of hypovolemia. Stable on this admit at 3.6-3.8 (6) Anti-phospholipid syndrome Status: ChronicAssessment/Plan: systemically anticoagulated hx of IVC filter (7) Atrial fibrillation, chronic Status: ChronicAssessment/Plan: Rate controlled, anticoagulant (8) COPD (chronic obstructive pulmonary disease) Status: ChronicAssessment/Plan: chronic without current acute exacerbation. (9) Anemia associated with chronic renal failure Status: ChronicAssessment/Plan: Stable. Component of renal disease. Workup for underlying myeloma pending. VTE Prophylaxis: Warfarin Disposition: Anticipate need to go to poststroke rehab/SNF once diagnosis and clinical course is clarified Additional Comments: DNR
[2017-02-18] MEDS: INSULIN ASPART (DOSE) 100 UNITS/1 ML SUB-Q PRN ×3 (11:55→21:20)
[2017-02-18] MEDS ORDERED: PUMP TUBING ONE (12:02)
[2017-02-18] MEDS: FUROSEMIDE 20 MG TABLET PO SCH (13:41)
[2017-02-18] MEDS: PREGABALIN 25 MG CAP PO SCH (13:42)
[2017-02-18] MEDS ORDERED: WARFARIN SODIUM 5 MG TABLET PO ONE (16:00)
[2017-02-18] MEDS ORDERED: IV START KIT ONE (16:45)
[2017-02-18] MEDS ORDERED: SODIUM CHLORIDE 0.9% FLUSH 10 ML ONE (16:45)
[2017-02-18] MEDS: GABAPENTIN 300 MG CAPSULE PO SCH (21:13)
[2017-02-18] MEDS: INSULIN GLARGINE (DOSE) 100 UNITS/ML UNIT SUB-Q SCH (21:13)
[2017-02-18] MEDS: CALCITONIN SALMON SYNTHETIC SUB-Q SCH (22:42)
[2017-02-19 06:30] LABS: ABSOLUTE NEUTROPHIL COUNT 6.4 K/mm3 (1.8-7.7); BASO # 0.1 K/mm3 (0.0-0.2); BASO % 0.6 % (0.2-1.0); EOS # 0.5 (0.0-0.5); EOS % 4.2 % (0.9-2.9); HEMATOCRIT 33.6 % (37.0-47.0); IMM NEUT% 0.3 % (0-1); LYMPH # 3.3 (1.0-4.8); LYMPH % 29.5 % (15-45); MEAN CELL VOLUME 93.9 fl (81.0-99.0); MEAN CORPUSCULAR HEMOGLOBIN 30.7 pg (27.0-31.0); MEAN CORPUSCULAR HGB CONC 32.7 g/dl (33.0-37.0); MEAN PLATELET VOLUME 10.7 fl (7.4-10.4); MONO # 0.9 (0.0-0.8); MONO % 8.4 % (4-12); PLATELET COUNT 215 K/mm3 (130-400); RED CELL DISTRIBUTION WIDTH 13.6 % (11.5-14.5)
[2017-02-19 06:45] LABS: ALBUMIN 3.2 gm/dL (3.5-5.7); CALCIUM 9.7 mg/dL (8.6-10.3); INR 3.81; PROTHROMBIN TIME 42.9 SECONDS (9.3-11.4)
[2017-02-19] MEDS: ISOSORBIDE MONONITRATE 30 MG TAB.SR PO SCH (09:13)
[2017-02-19] MEDS: FUROSEMIDE 40 MG TABLET PO SCH (09:13)
[2017-02-19] MEDS: SERTRALINE HCL 50 MG TABLET PO SCH (09:13)
[2017-02-19] MEDS: CLOTRIMAZOLE 1% 15 APPLIC/15 G CREAM TP SCH ×2 (09:13→21:08)
[2017-02-19] MEDS: CALCITONIN SALMON SYNTHETIC SUB-Q SCH ×2 (09:13→21:39)
[2017-02-19] MEDS: DOCUSATE SODIUM 100 MG CAPSULE PO SCH ×2 (09:25→21:08)
--- NOTE | 2017-02-19 10:26 | PDOC43 ---
- Subjective Chief Complaint: Left sided weakness, neglect, confusion Subjective: Reports Adequate Oral Intake, Reports Flatus, Reports Urinating Without Difficulty (brief), Reports Other (More awake, more "like herself" per ), Denies Cough, Denies Abdominal Pain, Denies Nausea, Denies Vomiting, Denies Fever - Objective Vital Signs Temperature 97.2 F 02/19/17 07:00 Pulse Rate 65 02/19/17 07:00 Respiratory Rate 16 02/19/17 07:00 Blood Pressure 125/57 02/19/17 07:00 O2 Saturation by Pulse Oximetry 100 02/19/17 07:00 Oxygen Delivery Method Room Air Oxygen Flow Rate 0 Intake and Output 02/17/17 02/18/17 02/19/17 23:59 23:59 23:59 Intake Total 600 700 450 Output Total 815 800 507 Balance -215 -100 -57 General: Alert, Oriented x3, Cooperative, No Acute Distress HEENT: Atraumatic, PERRLA, EOMI, Mucous membr. moist/pink Lungs: Clear to Auscultation Bilaterally, Normal Air Movement Cardiovascular: Irregular Abdomen: Soft, Normal Bowel Sounds, Non-Distended, No Tenderness Extremities: No Edema, No Tenderness Skin: Other (right great toe with mild erythema around lateral nail edge) Psych/Mental Status: Flat Affect, Other (Awake, alert, answering questions in a timely manner, mild confusion with prolonged conversation or complex questions) Laboratory 02/19/17 05:30 02/19/17 05:30 02/19/17 02/19/17 02/18/17 07:35 05:30 21:11 RBC 3.58 L MCHC 32.7 L PT 42.9 H BUN 54 H Estimated GFR 12 L POC Capillary Glucose 141 H 217 H Albumin 3.2 L 02/18/17 02/18/17 16:35 11:30 RBC MCHC PT BUN Estimated GFR POC Capillary Glucose 253 H 209 H Albumin Current Medications: Current meds reviewed in EMR. - Problems: Assessment/Plan (1) Delirium Status: AcuteAssessment/Plan: Improved today with decrease in Ca+ Will get MRI tomorrow, prior to discharge to evaluate MANAGER PROPERTY. ddx includes pre-existent dementia ( denies but suspect mild component at least), CVA sequelae but CT head on admit without acute evidence of CVA, symptomatic hypercalcemia Reassess tomorrow and get MRI (2) Hypercalcemia Status: AcuteAssessment/Plan: Improving and mental status seems to be improving in accordance. Continue Calcitonin dosing, completed gentle IVF hydration, encourage PO. Will redraw Ca in am. Not present on prior labs available for review. Held Calcium acetate and any other VitD or Ca+ containing medications. PTH is low which make this more likely to be a paraneoplastic finding or plasma cell disease but workup is underway. I am concerned of underlying process such as malignancy/myeloma. She does have a remote history of primary best cancer in the left breast and then the right about 20years ago per . (3) Stroke Qualifiers: CVA mechanism: occlusion Laterality of affected vessel: unspecified Status: SuspectedAssessment/Plan: Left sided deficit observed on admit but PT is noting migratory deficits and variable symptoms, more concerning now for metabolic encephalopathy. May need an MRI brain prior to discharge in order to further clarify. 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 Completed speech/swallow evaluation, PT/OT evaluation and treatment ongoing. Stroke education provided. Discharge back on home Lovastatin. Intolerant to ASA due to gastritis by report. Recommend PCP evaluate whether risk vs benefit of antiplatelet therapy in addition to Warfarin if MRI shows subacute CVA. Continue anticoagulation with Warfarin for APL and afib Discharge is arranged to acute care rehab facility and they are holding bed for tomorrow (4) DM II (diabetes mellitus, type II), controlled Status: ChronicAssessment/Plan: Home management, SSI prn (5) CKD (chronic kidney disease) stage 4, GFR 15-29 ml/min Status: ChronicAssessment/Plan: Prior baselines appear to be closer to 3. No evidence of hypovolemia. Stable on this admit at 3.6-3.8 (6) Anti-phospholipid syndrome Status: ChronicAssessment/Plan: systemically anticoagulated hx of IVC filter (7) Atrial fibrillation, chronic Status: ChronicAssessment/Plan: Rate controlled, anticoagulant (8) COPD (chronic obstructive pulmonary disease) Status: ChronicAssessment/Plan: chronic without current acute exacerbation. (9) Anemia associated with chronic renal failure Status: ChronicAssessment/Plan: Stable. Component of renal disease. Workup for underlying myeloma pending. VTE Prophylaxis: Warfarin Disposition: Has bed and approval for poststroke rehab/SNF with bed held for tomorrow anticipated dc Additional Comments: DNR/DNI
[2017-02-19] MEDS: PREGABALIN 25 MG CAP PO SCH (15:17)
[2017-02-19] MEDS: FUROSEMIDE 20 MG TABLET PO SCH (15:17)
[2017-02-19] MEDS: INSULIN GLARGINE (DOSE) 100 UNITS/ML UNIT SUB-Q SCH (21:07)
[2017-02-19] MEDS: GABAPENTIN 300 MG CAPSULE PO SCH (21:08)
[2017-02-20 06:31] LABS: ABSOLUTE NEUTROPHIL COUNT 6.7 K/mm3 (1.8-7.7); BASO # 0.1 K/mm3 (0.0-0.2); BASO % 0.7 % (0.2-1.0); EOS # 0.4 (0.0-0.5); EOS % 3.5 % (0.9-2.9); HEMOGLOBIN 10.5 gm/l (12.0-16.0); IMM NEUT% 0.3 % (0-1); LYMPH # 3.6 (1.0-4.8); LYMPH % 30.1 % (15-45); MEAN CELL VOLUME 94.8 fl (81.0-99.0); MEAN CORPUSCULAR HEMOGLOBIN 30.2 pg (27.0-31.0); MEAN CORPUSCULAR HGB CONC 31.8 g/dl (33.0-37.0); MEAN PLATELET VOLUME 10.4 fl (7.4-10.4); MONO # 1.1 (0.0-0.8); MONO % 9.3 % (4-12); NEUT % 56.1 % (43-75); PLATELET COUNT 229 K/mm3 (130-400); RED CELL DISTRIBUTION WIDTH 13.5 % (11.5-14.5)
[2017-02-20 06:51] LABS: INR 3.41; PROTHROMBIN TIME 38.2 SECONDS (9.3-11.4)
[2017-02-20 06:57] LABS: CALCIUM 9.4 mg/dL (8.6-10.3)
[2017-02-20] MEDS ORDERED: SODIUM CHLORIDE 0.9% FLUSH 10 ML ONE (07:32)
[2017-02-20] MEDS ORDERED: IV START KIT ONE (07:33)
[2017-02-20] MEDS: SERTRALINE HCL 50 MG TABLET PO SCH (09:10)
[2017-02-20] MEDS: ISOSORBIDE MONONITRATE 30 MG TAB.SR PO SCH (09:10)
[2017-02-20] MEDS: CLOTRIMAZOLE 1% 15 APPLIC/15 G CREAM TP SCH (09:21)
[2017-02-20] MEDS: FUROSEMIDE 40 MG TABLET PO SCH (09:21)
[2017-02-20] MEDS: DOCUSATE SODIUM 100 MG CAPSULE PO SCH (09:22)
[2017-02-20] MEDS: CALCITONIN SALMON SYNTHETIC SUB-Q SCH (09:22)
[2017-02-20 09:28] LABS: ALPHA-1 0.23 gm/dL (0.14-0.31); ALPHA-2 0.98 gm/dL (0.76-1.24); REFLEX IFE Yes (())
[2017-02-20] MEDS: PREGABALIN 25 MG CAP PO SCH (14:08)
[2017-02-20] MEDS: FUROSEMIDE 20 MG TABLET PO SCH (14:08)
--- NOTE | 2017-02-20 14:23 | MRI ---
MRI OF THE BRAIN WITHOUT CONTRAST HISTORY: Acute stroke symptoms.. Multiplanar, multisequence MR imaging of the brain performed with FLAIR, T2, diffusion-weighted imaging, and T1-weighted imaging. The patient did not receive intravenous contrast due to diminished renal function. Imaging mildly degraded by motion artifacts. COMPARISON: Correlation against head CT from 02/15/2017. FINDINGS: BRAIN VOLUME: Volume loss of mild to moderate severity, most notable at the bifrontal distribution. More focal volume loss at the left temporal occipital aspect as well as the right frontal cortex compatible with remote infarcts. VENTRICULAR SIZE: Prominence of the frontal horns on the basis of volume loss. FOCAL MASS EFFECT: No focal mass effect. VASCULAR FLOW VOIDS: Grossly unremarkable. SIGNAL ABNORMALITY: Ovoid signal abnormality involving the right thalamus. Additional gliosis at site of left temporal occipital infarct. Minor periventricular white matter signal abnormality compatible with microvascular disease. DIFFUSION-WEIGHTED IMAGING: No abnormally restricted diffusion identified. MIDLINE STRUCTURES: Mild elevation of the corpus callosum. PARANASAL SINUSES: Minor mucosal thickening without air-fluid levels. TYMPANOMASTOID CAVITIES: Minimal right mastoid effusion. ORBITS: Status post cataract surgery.. IMPRESSION: 1. Acute/subacute right thalamic infarct. 2. Background changes of mild microvascular disease and remote right frontal and left temporal occipital infarcts. 3. Disproportionate moderate volume loss of the frontal lobes, of the symmetric nature. 4. Minimal right mastoid effusion. 5. Evidence of prior cataract surgery. Findings discussed with Dr. Matias of the hospitalist clinical service on 02/20/2017 at 1420 hours.
[2017-02-20] MEDS ORDERED: INSULIN ASPART (DOSE) 100 UNITS/1 ML SUB-Q PRN (14:33)
[2017-02-20] MEDS ORDERED: ASPIRIN (ENTERIC COATED) 81 MG TABLET.EC PO SCH (14:45)
[2017-02-20 14:50] VITALS: BP 136/64
[2017-02-20 17:54] LABS: KAPPA/LAMBDA CHAIN RATIO 1.37 (0.26-1.65)
--- NOTE | 2017-02-21 07:07 | DS ---
Viviane Garcia [id number] DATE OF ADMISSION: 02/15/2017 DATE OF DISCHARGE: 02/20/2017 DISCHARGE DIAGNOSES: 1. Acute right thalamic infarct causing left sided/non-dominant neglect and weakness. 2. Adult onset diabetes on insulin. 3. Chronic stage IV kidney disease likely due to diabetes. 4. Antiphospholipid antibody syndrome chronically anticoagulated on Coumadin. 5. Chronic atrial fibrillation. 6. Chronic obstructive pulmonary disease without acute exacerbation. 7. Anemia due to chronic kidney disease. 8. Hypercalcemia with acute metabolic encephalopathy associated with normal vitamin D levels and low parathyroid hormone levels, rule out hypercalcemia of malignancy. PROCEDURES PERFORMED DURING THE HOSPITALIZATION; Included a MRI of the brain on 02/20/2017 which confirmed the clinical impression of a right thalamic cerebrovascular accident. There was also evidence of small vessel ischemic disease and prior infarcts in the right frontal and left temporal occipital areas. TO SUMMARIZE THE ADMISSION AND HOSPITAL COURSE: The patient is a 76-year-old female with medical problems as listed above who presented with left sided weakness and confusion. She was hemodynamically stable on presentation and showed some disorientation and some left sided neglect and left sided weakness. Her initial CT showed no acute change. Creatinine was stable at 3.7. INR was slightly subtherapeutic at 1.6. The patient was referred to the hospitalist service and treated with physical therapy, occupational therapy. She was hydrated. Her Calcitriol dose was held because of the elevated calcium levels. Phosphorus level was normal. Parathyroid hormone levels were low measuring 11.9. Her calcium level improved to 9.4 by the day of discharge with a few subcutaneous doses of Calcitonin. Renal function remained stable during her stay. Urine protein electrophoresis and serum protein electrophoresis are both pending. Fasting cholesterol showed a total cholesterol of 120 and LDL cholesterol of 64, HDL cholesterol 33. Showed progress with physical therapy and was felt to be a good candidate for penitentiary rehab. She was approved for acceptance at [facility]. She had MRI performed prior to discharge. DISCHARGE EXAMINATION: VITALS: At discharge showed a temperature of 97.8, pulse 63, blood pressure 136/64, respirations 18, oxygen saturations 99% on room air. Body mass index is 34.4, weight is 85.3 kg. GENERAL: This is an elderly female in no acute distress. HEENT: Shows pupils equal, round, and reactive to light. Extraocular movements are intact. No oral lesions are present. 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 LABORATORY STUDIES: Included a CBC with a white count of 11.9, hemoglobin 10.5, and a platelet count of 229,000. Her INR on the day of discharge was 3.41. Her chemistry profile showed a sodium of 141, potassium 3.6, carbon dioxide 31, BUN 51, creatinine 3.8, glucose 139, and calcium level 9.4. DISCHARGE MEDICATIONS: 1. She is taken off of her calcium supplement. 2. She is going to continue iron sulfate 65 mg three times a day. 3. Lasix 20 mg daily at 2:00 p.m. 4. Coumadin dose has been changed to 5 mg by mouth Monday, Monday, Monday, , Monday, and 7.5 mg on Monday and Monday only. 5. She will take Sertraline 50 mg in the morning. 6. Lyrica 25 mg daily at 2:00. 7. Multivitamin once a day. 8. Lovastatin 40 mg in the evening. 9. Isosorbide mononitrate extended release 30 mg daily. 10. Lantus insulin 28 units subcutaneously every evening. 11. Neurontin 300 mg subcutaneously twice daily. 12. Lasix 40 mg daily in the morning. 13. Novolin insulin per correction scale. 14. Colace 100 mg twice daily. 15. Lotrimin 1% cream applied topically to rash and skin folds twice daily. 16. Enteric coated aspirin 81 mg daily was prescribed. DISCHARGE INSTRUCTIONS: She is going to have a follow basic metabolic panel and a pro time drawn on February 22 and follow up is scheduled with Dr. Edward Gupta on February 28 at 1:00 p.m. If she is having a recurring hypercalcemia while off the calcium supplementation she may benefit from further workup for malignancy. Also I had contacted Dr. Guillermo's office and sent the copies of the labs to Dr. Guillermo's office as well as Dr. Gupta's office. While at [facility] she will get skin care, bowel care, podiatry care per house protocol. She will physical therapy, occupational therapy, and speech therapy services evaluate and treat. She will have activities as tolerated and weightbearing as tolerated. She will be on a diabetic diet with regular texture. JOB: [id number] CC: Dr. Lacy Gupta
== END 2017-02-20 16:36 | DRG 64 ==
LOC: ED 16:47 → MS 20:31
PROVIDERS: ADMIT Family Medicine; ATTEND Internal Medicine Hematology & Oncology
DX: I63.8 Other cerebral infarction (principal); G93.41 Metabolic encephalopathy; N18.4 Chronic kidney disease, stage 4 (severe); D68.61 Antiphospholipid syndrome; I48.2 Chronic atrial fibrillation; Z79.01 Long term (current) use of anticoagulants; Z86.711 Personal history of pulmonary embolism; E11.9 Type 2 diabetes mellitus without complications; Z79.4 Long term (current) use of insulin; E11.22 Type 2 diabetes mellitus with diabetic chronic kidney disease; J44.9 Chronic obstructive pulmonary disease, unspecified; N18.9 Chronic kidney disease, unspecified; D63.1 Anemia in chronic kidney disease; E83.52 Hypercalcemia